=== PATIENT | male | born 1965 | race African-American/Black ===

== ENCOUNTER 2021-03-31 15:21 | Emergency (ER) | payer MEDICAID, SELFPAY ==
[2021-03-27 18:40] VITALS: BMI 20.9
[2021-03-31 15:22] VITALS: BP 143/86; PULSE 90; RESP 16; TEMP 36.4; O2SAT 99; BMI 20.8
--- NOTE | 2021-03-31 16:12 | EX.ED.DYSGE1 ---
HPI History of Present Illness Chief Complaint: Rash Informant: patient Onset/Context/Timing Onset: Month(s) (1) Context: Gradual Onset Timing: Continuous Quality: mostly itchy, sore in some areas also Location: mostly back, arms, legs Current Severity: Moderate Maximum Severity: Moderate Worsened by: nothing Relieved by: steroid cream partially Associated Symptoms Associated Symptoms: oozing white-yellow thick d/c from some leg areas Narrative Narrative: Patient with rash most prominent on his legs but present on his arms and his back for a month. He initially went to urgent care and was prescribed hydrocortisone cream which helped partially. He finished the cream stating it was a small tube. He went back to urgent care and states he was prescribed another cream and is not sure what it was but thinks it was a different steroid cream, as well as some antibiotics. Again, he states the cream helped partially. Now things are getting worse he has been out of of these medications for at least 3 weeks, and is having some discharge that he describes as pus coming from some of the areas on his legs. He denies any fevers or chills. No obvious injuries. He states he was also given permethrin cream to use for possible scabies and he use it as directed a month ago. He takes no other prescription medications for anything. PFSH PFSH no medical history Home Medications cephalexin 500 mg PO Q8H #21 capsule 03/31/21 [Rx Last Taken Unknown] hydrocortisone 1 applic TOPICAL BID PRN #30 g 03/31/21 [Rx Last Taken Unknown] Allergy/AdvReac Type Severity Reaction Status Date / Time No Known Allergies Allergy Verified 03/31/21 15:24 Social History Smoking Status: Never smoker ROS ROS ED Constitutional Constitutional ED: Denies chills or fever(s) Eyes Eyes: Denies change in vision or diplopia ENT ENT ED: Denies rhinorrhea or sore throat Cardiovascular Cardiovascular: Denies chest pain or palpitations Respiratory/Chest Respiratory/Chest: Denies cough or dyspnea Gastrointestinal Gastrointestinal: Denies abdominal pain, diarrhea, nausea or vomiting Genitourinary Genitourinary ED: Denies dysuria or hematuria Musculoskeletal Musculoskeletal: Denies back pain or neck pain Integumentary Reports as per HPI, pruritus and rash; Denies abscess Neurologic Neurologic: Denies headache(s), paresthesias or weakness Psychiatric Psychiatric: Denies anxiety or suicidal thoughts EXAM Physical Exam Const Vital Signs: 03/31/21 15:22 Temperature 97.5 F L Temperature Source Temporal Pulse Rate 90 Respiratory Rate 16 Blood Pressure 143/86 H Blood Pressure Mean 105 Pulse Ox 99 Oxygen Delivery Method Room Air Positive well nourished and well developed General Appearance ED: well developed and NAD HEENT Reports moist mucous membranes normocephalic and atraumatic Eyes PERRL and EOMs intact bilaterally Neck full ROM and supple Back/Spine no CVA tenderness General Back: other FROM Extremity General Extremety ED: Negative for pulses abnormal General Extremity: Negative for pulses abnormal Neuro oriented x3, CN's II-XII intact bilaterally and no sensory deficits noted Sensorium / Orientation: awake and alert Motor Exam: strength 5/5 throughout Skin Skin Narrative: Patient has a fine maculopapular rash throughout his back that he states is pruritic. It is nontender. No bullae or petechia. On his upper extremities, there are a couple of very small lesions, some of which have some small scabs on them and some of which are mildly raised. Nontender. On his lower extremities, he has a couple of those but he has large patches of what appear to be scabbed over lesions anterior lower legs bilaterally. There is some erythema in between a couple of them that is mildly tender that may or may not be indicative of cellulitis. There are no abscesses, I am able to express discharge out of none of these. His legs where the scabs are are mildly swollen. No bullae, no petechia, no lymphangitis, no palpable cords, no inguinal lymphadenopathy. MDM MDM MDM Narrative Medical decision making narrative: I attempted to discuss this patient's rash with dermatology but their office is already closed, it is Saturday afternoon. He wants the Covid vaccine while he is here, since we offered the [employer] 1 shot version. Therefore I think it would be reasonable to hold off on giving him systemic steroids at this time, I will prescribe him hydrocortisone 2.5% cream to use as needed for the most itchy areas, and prescribed him cephalexin in case he is getting cellulitis which is likely secondary to several of these wounds on his legs. Advised to follow-up with dermatology since vasculitis is in the differential diagnosis here, as his psoriasis, contact dermatitis. Discharge Plan Triage Chief Complaint: Rash ED Provider: Chase Ewing Dx/Rx/DC Orders Clinical Impression: Dermatitis Instructions: Understanding Vasculitis, ED Atopic Dermatitis (Adult), ED Psoriasis Prescriptions: New cephalexin [cephalexin] 500 MG capsule 500 mg PO Q8H Qty: 21 RF: 0 hydrocortisone 2.5 % cream 1 applic topical BID PRN (Reason: itching) Qty: 30 RF: 0 Primary Care Provider: Care Physician,No Primary Referrals: Antony Roberts MD [STAFF PHYSICIAN] - As soon as possible (call saturday for appt) Care Physician,No Primary [Primary Care Provider] - Disposition Disposition: Home, Self Care
[2021-03-31] MEDS: COVID-19 VAC,AD26(JANSSEN)/PF 0.5 ML SYRINGE IM (17:35)
== END 2021-03-31 17:58 | disposition home or self-care (01) ==
PROVIDERS: Emergency Provider Emergency Medicine
DX: L30.9 Dermatitis, unspecified (principal)
CPT/HCPCS: 91303; 99282

== ENCOUNTER 2021-09-07 13:50 | Outpatient (CLI) | payer MEDICAID, SELFPAY ==
[2021-09-07 15:22] LABS: Absolute Lymphocyte Count 1.12 X10^3/uL (0.83-4.51); Basophil# 0.02 X10^3/uL; Basophil% 0.2 % (0-1); Eosinophil# 0.14 X10^3/uL; Eosinophils% 1.2 % (0-5); Hemoglobin 11.7 g/dL (13.0-16.5); Lymphocyte # 1.12 X10^3/ul (0.83-4.51); Lymphocyte % 9.7 % (19-41); Mean Corp Hgb Conc 32.5 g/dL (32-36); Mean Corpuscular Hgb 30.3 pg (27.0-32.0); Mean Corpuscular Volume 93.3 fL (80-94); Mean Platelet Vol. 8.7 fl (6.2-12.0); Monocyte# 1.27 X10^3/uL; NRBC Flagged by Analyzer 0 % (0-5); Neutrophil # 8.95 X10^3/uL (2.7-7.7); Neutrophil % 77.6 % (47-70); Platelet Count 420 K/mm3 (150-450); RBC Distribution Width CV 13.6 % (11.6-14.6); RBC Distribution Width SD 46.7 fl (35.1-43.9); Red Blood Count 3.86 M/mm3 (4.6-6.2); White Blood Count 11.5 K/mm3 (4.4-11.0)
[2021-09-07 15:59] LABS: ALB/GLOB Ratio 0.5 RATIO (0.9-2.4); AST(SGOT) 11 U/L (15-37); Alanine Aminotransfer ALT/SGPT 15 U/L (16-61); Albumin, Serum 2.8 g/dL (3.2-5.0); Alkaline Phosphatase 88 U/L (45-117); Anion Gap 5 (5-15); BUN 6 mg/dL (7-18); BUN/Creat Ratio 6.7 RATIO (10-20); Bilirubin, Direct 0.09 mg/dL (0.00-0.30); Calcium,Total 8.8 mg/dL (8.5-10.1); Chloride 106 mmol/L (98-107); Creatinine, Serum 0.89 mg/dL (0.70-1.30); EST Glomerular Filtration Rate 93 mL/min (>60); Est Glom Filt Rate - Afr Amer 113 mL/min (>60); Globulin 5.2 g/dL (2.2-4.2); Glucose 89 mg/dL (74-106); Potassium 3.4 mmol/L (3.5-5.1); Sodium Level 138 mmol/L (136-145)
[2021-09-08 08:58] LABS: Hepatitis B Surface Antibody Non-Reactive
[2021-09-09 21:07] LABS: ASO Titer 37.7 IU/mL (0.0-200.0); HEPATITIS B SURFACE AG Negative (Negative); Hepatitis A IgM Antibody Negative (Negative); Hepatitis B Core AB IgM Negative (Negative); QNTFERON TB Mitogen Value 2.07 IU/mL (.); QNTFERON TB Nil Value 0 IU/mL (.); QNTFERON TB1+ Ag Value 0 IU/mL (.); QNTFERON TB2+ Ag Value 0 IU/mL (.)
[2021-09-10 16:33] LABS: Hep C Antibodies <0.1 s/co ratio (0.0-0.9); Hepatitis A AB, Total Negative (Negative); QNTIFERON TB Positive Criteria Negative (Negative)
== END 2021-09-07 23:59 | disposition short-term general hospital (02) ==
LOC: MTLAB 13:51
PROVIDERS: Referring Provider Dermatology; Visit Provider Dermatology
DX: L30.9 Dermatitis, unspecified (principal); L02.222 Furuncle of back [any part, except buttock and flank]
CPT/HCPCS: 36415; 80053; 80074; 82248; 85025; 86060; 86480; 86706; 86708

== ENCOUNTER → 2021-12-20 | Outpatient (CLI) | payer MEDICAID, SELFPAY ==
--- NOTE | 2021-12-20 10:27 | MRI_ITS ---
STUDY: MRI LEFT KNEE REASON FOR EXAM: Left knee pain, swelling, instability, twisting injury 3 weeks ago. TECHNIQUE: Standardized fat and water weighted pulse sequences were obtained in all 3 orthogonal planes. COMPARISON: Radiographs 12/05/2021. FINDINGS: There is a small tear of the inferior articular surface of the posterior horn of the medial meniscus near the root (proton-density sagittal image 15). There is arthrosis of the medial femorotibial compartment with chondral loss of the medial femoral condyle (T2 sagittal image 5). Normal medial femoral condyle and tibial plateau. There is a mild sprain of the proximal medial collateral ligament (T2 coronal image 18). Normal distal semimembranosus, gracilis and semitendinosus tendons. Normal lateral meniscus. Normal hyaline cartilage of the lateral femorotibial compartment. Normal lateral femoral condyle and tibial plateau. Normal proximal tibiofibular articulation. Normal lateral collateral (fibular) ligament. Normal popliteus tendon. Normal biceps femoris tendon. Normal anterior cruciate ligament (ACL). Normal posterior cruciate ligament (PCL). Normal congruent patellofemoral articulation. There is arthrosis of the patellofemoral compartment with chondral thinning of the femoral trochlea (T2 sagittal image 12) and very mild subchondral cystic change of the lateral femoral trochlea. Normal medial and lateral patellar retinaculum. Normal visualized quadriceps tendon. There is patellar enthesopathy. Normal patellar tendon. Normal Hoffa''s fat pad. There is a moderate-sized joint effusion. There is a small popliteal cyst with mild extravasation of fluid (T2 sagittal images 3-8). The otherwise visualized osseous structures are unremarkable. MRI/Lower Ext Joint Only (Routine) IMPRESSION: Small tear of the medial meniscus. Mild sprain of the medial collateral ligament. Arthrosis of the medial femorotibial and patellofemoral compartments. Joint effusion. Small popliteal cyst with mild extravasation of fluid. Electronically Signed: Larry Jalloh MD at 12:01 EDT ,
== END | disposition home or self-care (01) ==
DX: M23.92 Unspecified internal derangement of left knee (principal)
CPT/HCPCS: 73721

== ENCOUNTER 2023-01-21 08:16 | Outpatient (REF) | payer SELFPAY ==
[2023-01-21 08:17] VITALS: BP 145/92; PULSE 88; RESP 16; TEMP 36.6; O2SAT 98; BMI 21.2
--- NOTE | 2023-01-21 08:27 | RAD_ITS ---
Examination: Radiograph of Bilateral acromioclavicular joints INDICATION: Deformity status post blunt trauma. TECHNIQUE: 5 frontal images were obtained. COMPARISON: None FINDINGS: No fracture is visualized. There is widening of the left coracoclavicular distance associated with the acromium subluxed caudal to the distal end of the clavicle. No suspicious bony lesions are visualized. The right acromioclavicular joint is within normal limits. RAD/A/C Jts Silver w or w/o Wts IMPRESSION: Left acromioclavicular separation. Electronically Signed: Georgina Rubio MD at 9:08 EDT ,
[2023-01-21] MEDS: Ibuprofen 600 MG Tablet PO (08:32)
[2023-01-21] MEDS: HYDROcodone Bitartrate/Apap 5/325 Tablet PO (08:32)
--- NOTE | 2023-01-21 08:37 | EX.ED.UPPERE ---
HPI History of Present Illness Chief Complaint: Upper Extremity Injury Detail of Chief Complaint: Patient presents because of blunt trauma to his left shoulder. Informant: patient Occured/Mechanism Mechanism/Context: Yes injury and Yes blunt trauma Comment: Patient states he fell against a table. Onset/Context/Timing Onset: Hours Context: Sudden Onset Timing: Continuous Quality of Pain: Dull, Aching and Throbbing Location: Left shoulder region Current Severity: Mild Maximum Severity: Severe Worsened by: Attempt to move left upper body Relieved by: Nothing Associated Symptoms Associated Symptoms: Positive for Loss of Funtion; Negative for Parasthesia or Weakness Narrative Narrative: Patient is a 57-year-old [id number] male presents after reported fall. He is incarcerated. He states he believes he dislocated his shoulder. He denies paresthesia, anesthesia medics. Denies head trauma. He denies chest pain or shortness of breath. He denies neck pain. He denies low back pain. Prior similar symptoms: No Recent Illness/Hospitalization: No PFSH PFSH Medical History Internal derangement of left knee Strain of left knee Home Medications cyclobenzaprine 10 mg tablet 10 mg PO TID PRN muscle spasm #30 tabs 12/02/21 [Rx Last Taken Unknown] hydrocodone-acetaminophen 5-325mg 5mg-325mg 1 tab PO Q6H PRN PRN Pain 3 days #10 TABLETS 01/21/23 [Rx Last Taken Unknown] ibuprofen 600 mg tablet 600 mg PO Q6H PRN PRN pain #20 TABLETS 01/21/23 [Rx Last Taken Unknown] Allergy/AdvReac Type Severity Reaction Status Date / Time No Known Allergies Allergy Verified 01/21/23 08:16 Family History Other Diabetes Social History household members: family Smoking Status: Former smoker alcohol intake: current ROS ROS ED Constitutional Constitutional ED: Denies chills, fever(s), subjective, sweats or weight loss Eyes Eyes: Denies blurry vision, change in vision or diplopia ENT ENT ED: Denies ear pain, rhinorrhea or sore throat Cardiovascular Cardiovascular: Denies chest pain, palpitations or racing heartbeat Respiratory/Chest Respiratory/Chest: Denies cough, dyspnea or dyspnea on exertion Gastrointestinal Gastrointestinal: Denies nausea or vomiting Musculoskeletal Musculoskeletal: Denies back pain, myalgias or neck pain Integumentary Reports Abrasions; Denies rash Neurologic Neurologic: Denies headache(s), paresthesias or weakness Hematologic/Lymphatic Hematologic/Lymphatic: Denies easy bleeding or easy bruising EXAM Physical Exam Const Vital Signs: 01/21/23 08:17 Temperature 97.8 F Temperature Source Temporal Pulse Rate 88 Respiratory Rate 16 Blood Pressure 145/92 H Blood Pressure Mean 109 Pulse Ox 98 Oxygen Delivery Method Room Air Positive well nourished and well developed Constitutional Narrative: Patient appears uncomfortable. He moves slowly. General Appearance ED: well developed; Negative for cyanotic, diaphoretic or NAD HEENT HEENT Narrative: Ears normal. Nares patent. No septal deviation hematoma. No dental trauma. Posterior pharynx is normal. normocephalic and atraumatic Eyes PERRL and EOMs intact bilaterally Eyes Narrative: No subconjunctival hemorrhage noted. Neck full ROM and supple General: Negative for tenderness Chest Wall inspection of chest normal and palpation of chest normal Chest Narrative: There is no crepitus or subcutaneous air. There is no point tenderness of the ribs. Resp normal respiratory effort and clear to auscultation bilaterally Cardio regular rate, regular rhythm, S1 normal heart sound, S2 normal heart sound and no murmurs Back/Spine no CVA tenderness Back/Spine Narrative: There is evidence of trauma left scapular region. Extremity Negative for normal to inspection Extremity Narrative: Patient has obvious deformity of the AC joint left shoulder. The glenoid fossa is not empty. The axillary, median, radial and ulnar function intact. Patient is able to AB duct to approximately 60 degrees before grimacing. Radial pulses palpable. Neuro oriented x3, CN's II-XII intact bilaterally, moves all extremities, no focal motor deficits and no sensory deficits noted Neuro Narrative: GCS is 15. Sensorium / Orientation: alert Psych mental status grossly normal Skin Skin Narrative: Abrasion over the left AC joint and left scalp Trauma: abrasion MDM MDM MDM Narrative Medical decision making narrative: Clinically patient has a shoulder separation suspect third-degree. X-rays were obtained to evaluate for associated fracture. Patient was medicated with NSAID and opiate analgesic since he has no contraindication. Radiography Chest X-Ray - ED: Read by ED Physician (Total of 3 views were obtained. Patient has findings consistent with a second-degree shoulder separation, acromioclavicular joint injury. There is no associated fracture.) Treatment and Re-Evaluation Narrative: Patient treated with sling swath and opiate analgesia. Discharge Plan Triage Chief Complaint: Upper Extremity Injury ED Provider: Chino Yuan Dx/Rx/DC Orders Clinical Impression: Acromioclavicular joint separation, type 3 Instructions: Treatment for Shoulder Separation, ED Sprain AC Joint Prescriptions: New hydrocodone-acetaminophen [hydrocodone-acetaminophen] 5-325 mg tablet 1 tab PO Q6H PRN PRN (Reason: Pain) 3 Days Qty: 10 0RF ibuprofen 600 mg tablet 600 mg PO Q6H PRN PRN (Reason: pain) Qty: 20 0RF Discontinued ibuprofen 600 mg tablet 600 mg PO Q6H PRN (Reason: pain) Qty: 40 0RF No Action cyclobenzaprine 10 mg tablet 10 mg PO TID PRN (Reason: muscle spasm) Qty: 30 0RF Rx Instructions: only AFTER work hours on work days Primary Care Provider: Care Physician,No Primary Referrals: Timothy Blank DO [Med Staff - Active Staff] - 3-5 Days Care Physician,No Primary [Primary Care Provider] - Disposition Disposition: Home, Self Care
== END 2023-01-21 10:06 | disposition home or self-care (01) ==
LOC: ED 08:16
PROVIDERS: Visit Provider Emergency Medicine
DX: S43.102A Unspecified dislocation of left acromioclavicular joint, initial encounter (principal); S40.212A Abrasion of left shoulder, initial encounter; S00.01XA Abrasion of scalp, initial encounter; W18.09XA Striking against other object with subsequent fall, initial encounter; Y92.149 Unspecified place in prison as the place of occurrence of the external cause; Z87.891 Personal history of nicotine dependence
CPT/HCPCS: 73050; 99285

== ENCOUNTER → 2025-03-11 | Outpatient (CLI) | payer MEDICAID, SELFPAY ==
[2025-03-11 12:15] LABS: Hematocrit 42.4 % (40-54); Hemoglobin 14.0 g/dL (13.0-16.5); Immature Granulocytes Count 0.010 X10^3/uL (0.0-0.0); Mean Corp Hgb Conc 33.0 g/dL (32-36); Mean Corpuscular Volume 89.6 fL (80-94); Mean Platelet Vol. 9.4 fl (6.2-12.0); NRBC Flagged by Analyzer 0 % (0-5); Platelet Count 349 K/mm3 (150-450); RBC Distribution Width CV 13.9 % (11.6-14.6); RBC Distribution Width SD 45.7 fl (35.1-43.9); Red Blood Count 4.73 M/mm3 (4.6-6.2); White Blood Count 7.1 K/mm3 (4.4-11.0)
[2025-03-11 13:10] LABS: AST(SGOT) 25 U/L (<=37); Alanine Aminotransfer ALT/SGPT 8 U/L (<=46); Albumin, Serum 4.3 g/dL (3.4-4.8); Alkaline Phosphatase 146 U/L (40-129); Anion Gap 11 (5-15); BUN 12 mg/dL (4-19); BUN/Creat Ratio 11.4 RATIO (10-20); Calcium,Total 9.6 mg/dL (7.6-11.0); Carbon Dioxide 24.5 mmol/L (21.0-32.0); Chloride 102 mmol/L (98-108); Globulin 3.9 g/dL (2.2-4.2); Glucose 104 mg/dL (70-99); Potassium 4.2 mmol/L (3.3-5.1)
== END | disposition home or self-care (01) ==
LOC: VSLAB 10:11
PROVIDERS: PCP Nurse Practitioner Family; Visit Provider Nurse Practitioner Family
DX: G47.00 Insomnia, unspecified (principal)
CPT/HCPCS: 36415; 80053; 84443; 85025